=== PATIENT | male | born 1990 | race Two or more races ===

== ENCOUNTER 2016-10-20 06:56 | Emergency (ER) | payer OTHER ==
[~2016-10-20] VITALS: Ht 182.9 cm; Wt 75.0 kg
[2016-10-20 07:01] VITALS: BP 142/83; PULSE 79; RESP 18; O2SAT 100
--- NOTE | 2016-10-20 07:07 | ED.REPORT ---
HPI-General Illness Date of Service Oct 20, 2016 ED Provider: Mann Parson Patient is a 26 year old male who presents to the ED complaining of abnormal limb movements onset 3-4 hours ago. Associated symptoms include chest pressure, nausea, chills, and losing his train of thought. He denies cough, diarrhea, diaphoresis, or any other symptoms. He took cocaine last night. Per his girlfriend, he was mumbling, unable to form words, shaking, and his eyes were rolling back in his head a few hours prior to arrival. He had a fever a few days ago. He takes citalopram 10 mg 2x day. Nursing Notes Stated Complaint: CONVULSIONS Chief Complaint: General Complaint Nursing Notes Reviewed: Yes Allergies: Coded Allergies: No Known Allergies (Verified Allergy, Unknown, 07/12/15) General Time Seen by MD: 07:06 Chief Complaint Other (Abnormal movement ) Hx Obtained From: Patient Arrived By: Walk-in Sudden in Onset?: Yes Onset Occurred: 1 - 4 hours ago Similar Sx Previous: No Past Medical History Past Medical History Anxiety Reports: Depression Past Surgical History None Smoking History Current Every Day Smoker Social History Alcohol Use: "Social" Drug Use: Cocaine, THC Ambulatory Status Independent Review of Systems - change in thought Full Review of Systems Constitutional: Reports: Chills Respiratory: Denies: Non-productive cough Cardiovascular: Reports: Chest pain GI: Reports: Nausea, Denies: Diarrhea Neurologic: Reports: Abnormal movement Complete sys rev & neg: except as marked. Physical Exam Vital Signs Vital Signs Date Time Temp Pulse Resp B/P Pulse Ox O2 Delivery O2 Flow Rate FiO2 10/20/16 07:01 36.7 79 18 142/83 100 Room Air Initial VS: Reviewed General/Constitutional: Well-developed, Well-nourished Head / Eyes: Atraumatic, Normocephalic Neck: Full range of motion Respiratory: No respiratory distress Skin: Warm, Dry Neurologic: Alert, Oriented, Nonfocal Psychiatric: Mood/affect normal, Behavior normal Lower Extremity / Pelvis / MS: Atraumatic Non-sustained clonus of ankles Hyperreflexia at knees. Skin: Color NL, Warm, Dry Interpretation & Diagnostics Lab Results Interpretation Result Diagram: 10/20/16 0755 10/20/16 0755 Test 10/20/16 07:55 White Blood Count 10.4th/mm3 (3.8-10.1) Red Blood Count 4.49mil/mm3 (4.40-5.80) Hemoglobin 13.0g/dL (13.8-17.2) Hematocrit 39.3% (41.0-50.0) Mean Corpuscular Volume 87.5fL (81-100) Mean Corpuscular Hemoglobin 29.0pg (27.0-35.0) Mean Corpuscular Hemoglobin Concent 33.1% (32.0-37.0) Red Cell Distribution Width 13.9% (12.3-15.4) Platelet Count 235bil/L (150-400) Neutrophils (%) (Auto) 77.7% (40-74) Lymphocytes (%) (Auto) 14.8% (14-46) Monocytes (%) (Auto) 6.0% (4-12) Eosinophils (%) (Auto) 0.5% (0-5) Basophils (%) (Auto) 0.8% (0-3) Sodium Level 135mEq/L (134-144) Potassium Level 4.1mEq/L (3.5-5.2) Chloride Level 100mEq/L (97-108) Carbon Dioxide Level 20mmol/L (18-29) Blood Urea Nitrogen 13mg/dL (6-20) Creatinine 0.97mg/dL (0.76-1.27) Estimat Glomerular Filtration Rate 100mL/min (>59) Glucose Level 98mg/dL (60-99) Calcium Level 9.4mg/dL (8.5-10.1) Total Bilirubin 0.9mg/dL (0.0-1.2) Aspartate Amino Transf (AST/SGOT) 43U/L (0-50) Alanine Aminotransferase (ALT/SGPT) 22U/L (0-44) Alkaline Phosphatase 50U/L (25-150) Total Protein 7.3g/dL (6.4-8.4) Albumin 4.1g/dL (3.4-5.0) Hold Moreno Top Tube Received (Received) Lab Results Interpretation: U Tox positive for THC and cocaine Re-Eval/Medical Decision Time of Eval: 09:01 Re-Evaluation/Progress Note: Rechecked patient. He is feeling much better and hyperreflexia has resolved. Discussed plan for discharge. Patient understands and agrees with plan. All questions addressed at this time. Counseled Regarding: Diagnosis, Lab results, Need for follow-up, When/why to return to ED Discharge & Departure Primary Impression: Acute situational disturbance Additional Impression: Cocaine abuse Disposition: Home Discharge Condition All VS Reviewed: Yes Condition: Improved Patient Instructions: Cocaine Abuse (ED) Additional Instructions: I do not see any cause for alarm here in the sense of serotonin syndrome. I do not believe your symptoms are related to serotonin syndrome per se. I think that his symptoms that you experienced are much more likely related to the cocaine use earlier this evening. If you are not back to normal over the next couple of days, I recommend follow-up with an outpatient provider for further evaluation. Please return to the emergency department for new or worrisome symptoms. Referrals: NOPCP (PCP) Scribe Attestation Portions of this note were transcribed by Luisa Varela. I, Dr. Parson personally performed the history, physical exam and medical decision-making; I reviewed and confirmed the accuracy of the information in the transcribed note. Signed by: Luisa Varela 10/20/16, 0902 Mann Parson MD Oct 20, 2016 07:07 LUISA VARELA Oct 20, 2016 07:25
[2016-10-20] MEDS ORDERED: LORazepam 1 mg Tablet PO ONE (07:30)
[2016-10-20 08:09] LABS: BASOPHILS % (AUTO) 0.8 % (0-3); EOSINOPHILS % (AUTO) 0.5 % (0-5); Mean Corpuscular Volume 87.5 fL (81-100); NEUTROPHILS % (AUTO) 77.7 % (40-74); Platelet Count 235 bil/L (150-400)
== END 2016-10-20 09:08 | disposition home or self-care (01) ==
LOC: SED 06:56
DX: F43.0 Acute stress reaction (principal); F14.10 Cocaine abuse, uncomplicated; R07.89 Other chest pain; R11.0 Nausea; F17.200 Nicotine dependence, unspecified, uncomplicated

== ENCOUNTER 2016-10-28 07:32 | Emergency (ER) | payer OTHER ==
[~2016-10-28] VITALS: Ht 185.4 cm; Wt 76.4 kg
--- NOTE | 2016-10-28 07:47 | ED.REPORT ---
HPI-Psychiatric Illness Date of Service Oct 28, 2016 ED Provider: Johanna Givens MD 26 year old male with a history of anxiety, depression, and daily minimal THC use presents to the ER accompanied by his girlfriend escorted by police requesting assistance due to a year of suicidal ideation. He has a plan involving firearms, overdose, or jumping from a building. His suicidality is a result of several stressors that have occurred in recent years, including his younger brother's suicide last year, meeting his estranged father and learning disturbing things about his family. He endorses access to a firearm, but is amenable to removing it from the household. At this moment he denies suicidality and feels that he would be safe for discharge. Patient was started on citalopram 5 months ago which has improved his sleeping habits, energy, and appetite, though he continues to experience variable appetite. Currently he lives with his Mom and her boyfriend and states that it is not a good situation. Nursing Notes Stated Complaint: VOLUNTARY PSYCH Nursing Notes Reviewed: Yes Allergies: Coded Allergies: No Known Allergies (Verified Allergy, Unknown, 07/12/15) Scheduled Citalopram (Citalopram) 10 Mg Tablet 10 MG PO DAILY Citalopram Hydrobromide (Celexa) 20 Mg Tablet 20 MG PO DAILY Trazodone (Trazodone) 50 Mg Tablet 50-100 MG PO HS 1 or 2 at night to help get to sleep and stay asleep as needed General Time Seen by MD: 07:46 Chief Complaint Suicidal ideation Hx Obtained From: Patient Arrived By: Police Onset Occurred: More than a week ago... (1 year) Symptom Duration: Intermittent Related History: Reports: Anxiety, Depression Recent Healthcare: Recent doctor visit Similar Sx Previous: Yes Risk-Psychiatric Illness Suicide Risk Stratification Suicide Risk Factors - Adult: : Family Hx of Suicide (Brother) RF Statements: Risk factors reviewed Past Medical History Past Medical History Anxiety OCD Reports: Depression Past Surgical History None Family History Younger brother comitted suicide Smoking History Current Every Day Smoker Social History Alcohol Use: "Social" Drug Use: Cocaine, THC Ambulatory Status Independent Review of Systems Psychiatric: Reports: Anxiety, Depression, Suicidal ideation, Denies: Change mental status, Delusional, Hallucinations, auditory, Hallucinations, visual, Homicidal ideation, Hostile Complete sys rev & neg: except as marked. Physical Exam Initial Vital Signs Vital Signs (First) Date Time Temp Pulse Resp B/P Pulse Ox O2 Delivery O2 Flow Rate FiO2 10/28/16 07:49 36.5 49 10 119/73 100 Room Air Initial VS: Reviewed Head / Eyes: Atraumatic, Normocephalic, PERRL Neck: Supple, Non-tender, Full range of motion Extremities: Vascular intact, Neuro intact, No swelling, No tenderness Skin: Warm, Dry, No cyanosis General/Constitutional: Awake, Alert, Well developed Neurologic: Oriented X3, Speech NL, No motor deficits, No sensory deficits Psychiatric: Not homicidal, No hallucinations, Cognitive function NL Abnormal Thinking / Perception: Positive: Suicidal, with plan Appropriate. Non-tangential. Good eye contact. States that he knows when he's bad and how to get help. Interpretation & Diagnostics Lab Results Interpretation Result Diagram: 10/28/16 0845 10/28/16 0845 Test 10/28/16 08:45 White Blood Count 9.2th/mm3 (3.8-10.1) Red Blood Count 5.04mil/mm3 (4.40-5.80) Hemoglobin 14.7g/dL (13.8-17.2) Hematocrit 44.8% (41.0-50.0) Mean Corpuscular Volume 88.9fL (81-100) Mean Corpuscular Hemoglobin 29.2pg (27.0-35.0) Mean Corpuscular Hemoglobin Concent 32.8% (32.0-37.0) Red Cell Distribution Width 14.2% (12.3-15.4) Platelet Count 218bil/L (150-400) Neutrophils (%) (Auto) 69.8% (40-74) Lymphocytes (%) (Auto) 16.9% (14-46) Monocytes (%) (Auto) 7.3% (4-12) Eosinophils (%) (Auto) 4.7% (0-5) Basophils (%) (Auto) 1.2% (0-3) Sodium Level 136mEq/L (134-144) Potassium Level 4.6mEq/L (3.5-5.2) Chloride Level 100mEq/L (97-108) Carbon Dioxide Level 24mmol/L (18-29) Blood Urea Nitrogen 18mg/dL (6-20) Creatinine 1.01mg/dL (0.76-1.27) Estimat Glomerular Filtration Rate 96mL/min (>59) Glucose Level 97mg/dL (60-99) Calcium Level 9.6mg/dL (8.5-10.1) Total Bilirubin 0.7mg/dL (0.0-1.2) Aspartate Amino Transf (AST/SGOT) 21U/L (0-50) Alanine Aminotransferase (ALT/SGPT) 17U/L (0-44) Alkaline Phosphatase 47U/L (25-150) Total Protein 7.5g/dL (6.4-8.4) Albumin 4.4g/dL (3.4-5.0) Thyroid Stimulating Hormone (TSH) 2.700uIU/mL (0.450-4.500) Hold Moreno Top Tube Received (Received) Re-Eval/Medical Decision Source of Hx: Old records Re-Evaluation/Progress #1: Time of Eval: 10:23 Re-Evaluation/Progress Note: Patient is resting comfortably with his girlfriend. Discussed need for follow-up with psychiatric provider. Updated patient on the plan of care. Re-Evaluation/Progress #2: Time of Eval: 12:00 Re-Evaluation/Progress Note: CHROME TANNER has seen patient and believes he is a good candidate for crisis respite. Patient is willing to go to crisis respite. Re-Evaluation/Progress #3: Time of Eval: 12:56 Re-Evaluation/Progress Note: Working on crisis respite bed. Re-Evaluation/Progress #4: Time of Eval: 14:40 Re-Evaluation/Progress Note: Discussed plan for discharge and immediate follow-up at crisis respite at 16:00 today. Patient understands and agrees to the plan. Return precautions given. All other questions addressed. Counseled Regarding: Diagnosis, Lab results, Need for follow-up, When/why to return to ED Discharge & Departure Impression: Primary Impression: Depression Additional Impression: Suicidal ideation )( Condition at Discharge: No danger to self, No danger to others, No suicidal ideation, No homicidal ideation Disposition: Home (to crisis respite) Discharge Condition All VS Reviewed: Yes Condition: Stable Patient Instructions: Major Depression (DC), Suicide Prevention Through Young Adulthood (DC) Additional Instructions: I am sorry struggling so much with your depression. I am glad you came to the emergency room when you were concerned that you were going to hurt yourself. I am going to suggest the you increase your Celexa to 20 mg daily and I have written a new prescription for that. For sleep I am going to suggest 500 mg of trazodone. This is a sleep medication that is nonaddictive, does not interact with Celexa, and will help you go to sleep and will help you stay asleep. Prescriptions have been electronically sent to [facility] for you today. If you feel that you need to hurt yourself, please return to the ER, Referrals: NOPCP (PCP) [facility] Scribe Attestation Portions of this note were transcribed by Shirley Butcher. I, Dr. Givens, personally performed the history, physical exam and medical decision-making; I reviewed and confirmed the accuracy of the information in the transcribed note. Signed by: Sunday Arias, 10/28/2016 at 14:43 copies to: [facility] ; [facility] Johanna Givens MD Oct 28, 2016 07:47 SHIRLEY BUTCHER Oct 28, 2016 07:57
[2016-10-28 07:49] VITALS: BP 119/73; PULSE 49; RESP 10; O2SAT 100
[2016-10-28] MEDS ORDERED: CITA10TA9 PO (08:05)
[2016-10-28 08:53] LABS: BASOPHILS % (AUTO) 1.2 % (0-3); EOSINOPHILS % (AUTO) 4.7 % (0-5); MONOCYTES % (AUTO) 7.3 % (4-12); Mean Corpuscular Hemoglobin 29.2 pg (27.0-35.0); Mean Corpuscular Volume 88.9 fL (81-100); NEUTROPHILS % (AUTO) 69.8 % (40-74); Platelet Count 218 bil/L (150-400)
[2016-10-28] MEDS ORDERED: CITA20TA PO (10:37)
[2016-10-28] MEDS ORDERED: TRAZ-115 PO (10:37)
--- NOTE | 2016-10-28 15:50 | NUR ---
Social work note - Discharged Pt was accepted to Crisis [facility]pite and will transport by [employer]. SANDIP Romero
== END 2016-10-28 15:40 | disposition home or self-care (01) ==
LOC: SED 08:43
DX: F32.9 Major depressive disorder, single episode, unspecified (principal); R45.851 Suicidal ideations; F41.9 Anxiety disorder, unspecified; F17.200 Nicotine dependence, unspecified, uncomplicated; F12.20 Cannabis dependence, uncomplicated